=== PATIENT | female | born 1980 | race Caucasian/White ===

== ENCOUNTER 2016-08-17 21:27 | Observation (INO) | payer OTHER ==
[2016-08-17 22:02] LABS: Hematocrit 41 % (35-47); Hemoglobin 13.4 g/dl (12.0-16.0); Mean Corpuscular HGB Conc 33 g/dl (31-36); Mean Corpuscular Hemoglobin 30 pg (27-31); Mean Corpuscular Volume 92 fL (80-97); Mean Platelet Volume 9 um3 (7.4-10.4); Red Blood Count 4.42 10^6/ul (4.0-5.4); Red Cell Distribution Width 14 % (10.5-15); White Blood Count 9.1 10^3/ul (3.5-10.8)
[2016-08-17 22:22] LABS: ALT 14 U/L (7-52); AST 17 U/L (13-39); Albumin 4.5 g/dL (3.2-5.2); Alkaline Phosphatase 46 U/L (34-104); Anion Gap 7 mmol/L (2-11); Blood Urea Nitrogen 9 mg/dL (6-24); CO2 Carbon Dioxide 26 mmol/L (22-32); Calcium 9.4 mg/dL (8.6-10.3); Chloride 103 mmol/L (101-111); Cholesterol 180 mg/dL; EGFR African American 91.1 (>60); EGFR Non-African American 70.8 (>60); Glucose 85 mg/dL (70-100); HDL Cholesterol 77.2 mg/dL; LDL Cholesterol 95 mg/dL; Potassium 3.8 mmol/L (3.5-5.0); Sodium 136 mmol/L (133-145); Total Protein 7.5 g/dL (6.4-8.9); Triglycerides 40 mg/dL
[2016-08-17] MEDS ORDERED: NS 0.9% 1000 ML* 1,000 ML IV ONE (22:34)
--- NOTE | 2016-08-17 22:47 | RAD ---
Indication: Headache, chest pain. Single frontal view of the chest performed at 2202 hours was reviewed. Comparison is made with previous exam dated December 29, 2015. No mediastinal shift is noted. Heart is of normal size and configuration. Lung toussaint appear clear. IMPRESSION: NO ACTIVE CARDIOPULMONARY DISEASE IS NOTED.
[2016-08-18] MEDS ORDERED: Acetaminophen TAB* 325 MG PO ONE ×2 (00:36→02:36)
[2016-08-18] MEDS ORDERED: Acetaminophen SUPP* 650 MG SUPP PR ONE (00:48)
[2016-08-18] MEDS ORDERED: Divalproex ER TAB(*) 500 MG PO ONE (02:40)
[2016-08-18 03:43] LABS: Valproic Acid < 13.0 mcg/mL (50-100)
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
[2016-08-18] MEDS ORDERED: Albuterol 2.5 MG/3 ML NEB.SOL* (0.083%) INH PRN (05:59)
[2016-08-18] MEDS ORDERED: NS 0.9% 1000 ML* 1,000 ML IV SCH (06:00)
[2016-08-18] MEDS ORDERED: Omeprazole CAP* 20 MG PO SCH (06:00)
[2016-08-18] MEDS ORDERED: Ondansetron INJ* 2 MG/ML VIAL IV PRN (06:00)
--- NOTE | 2016-08-18 07:44 | RAD ---
INDICATION: Left facial numbness COMPARISON: MRI brain February 25, 2013 TECHNIQUE: Noncontrast axial source images were acquired from the skull base to the vertex. FINDINGS: Ventricles/sulci: The ventricles and cisterns are normal in size and configuration for age. Brain parenchyma: There is no focal parenchymal finding, evidence of intracranial mass, or intracranial mass effect. Intracranial hemorrhage:None. Extra-axial spaces: There are no abnormal extra axial fluid collections or evidence of extra-axial mass. Calvarium: There is no calvarial fracture or other calvarial abnormality. Scalp: There is no evidence of scalp or extracalvarial soft tissue abnormality. Paranasal sinuses/mastoid: The paranasal sinuses and mastoid air cells are clear. Other: None. IMPRESSION: No acute intracranial findings
[2016-08-18] MEDS: Aspirin TAB* 325 MG PO SCH ×2 (07:47→08:42)
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
[2016-08-18 10:58] LABS: Benzodiazepine Urine Screen None Detected (None Detect)
[2016-08-18] MEDS ORDERED: Acetaminophen TAB* 325 MG PO PRN (12:00)
[2016-08-18] MEDS ORDERED: Naproxen TAB* 250 MG PO ONE (17:15)
[2016-08-18 18:18] VITALS: BP 95/54
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
--- NOTE | 2016-08-19 03:09 | EEG ---
ELECTROENCEPHALOGRAPHY: DATE OF STUDY: 08/18/16 - ROOM #433 LOCATION: She is an inpatient. REFERRING PHYSICIAN: Dr. Downey. CLINICAL PROBLEM: History of traumatic brain injury, repeated episodes of blackouts. Rule out seizures. Medications include Zofran, Prilosec, aspirin. REPORT: This 16-channel EEG is remarkable for background rhythms at the onset of the tracing consisting of an alpha rhythm in the posterior derivations at about 8 cycles per second, which is symmetric. Bifrontal and central beta rhythms are noted and are symmetric. The patient drowses early in the recording with central and bitemporal slowing. The patient falls into a light sleep and occasional phase- reversing left mid temporal to anterior temporal sharp waves are noted. The patient falls asleep with vertex sharp waves and sleep spindles seen symmetrically. Phase-reversing sharp waves in the left temporal region become less frequent. The patient sleeps through the remainder of the study and is awoken at the very end with a normal arousal response. Activation procedures are not attempted. CLINICAL IMPRESSION: Abnormal EEG due to phase-reversing sharp waves in the left temporal region during light sleep and drowsiness. This tracing suggests a possibility of epileptiform focus in the left temporal lobe. [id number]/[facility] #: [id number] [facility]ENTER[facility]
--- NOTE | 2016-08-22 07:37 | PN ---
Hospitalist Progress Note . HOSPITALIST DISCHARGE NOTE: See dc instructions and summary by me. Patient stable for dc dc instructions reviewed with the patient at the bedside. DC patient home today.
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
== END 2016-08-18 19:00 | disposition home or self-care (01) ==
LOC: ED 21:27 → MEDTELE 08-18 05:25
PROVIDERS: ADMIT Hospitalist; ATTEND Internal Medicine
DX: R51 Headache (principal); R20.0 Anesthesia of skin; R53.1 Weakness; G40.909 Epilepsy, unspecified, not intractable, without status epilepticus; R00.0 Tachycardia, unspecified; E04.1 Nontoxic single thyroid nodule; F17.210 Nicotine dependence, cigarettes, uncomplicated; Z79.82 Long term (current) use of aspirin; Z79.899 Other long term (current) drug therapy; Z87.820 Personal history of traumatic brain injury
CPT/HCPCS: 36415; 70450; 71010; 80053; 80061; 80164; 80307; 83605; 84484; 84702; 85025; 85610; 85730; 86850; 86900; 86901; 93005; 95819; 96360; 96361; 99285; A9270-GY; G0378